=== PATIENT | male | born 1960 | race Caucasian/White ===

== ENCOUNTER → 2017-01-26 | Outpatient (CLI) | payer BC ==
--- NOTE | 2017-01-27 11:36 | PE ---
EXAMINATION TYPE: PET CT fusion skull to thigh DATE OF EXAM: 01/26/2017 COMPARISON: 09/28/2016 CT neck Prior PET/CT: None HISTORY: Oropharynx cancer TECHNIQUE: Following the intravenous administration of 14.03 mCi of F-18 FDG, whole body images are performed from the skull base to the midthigh. Images are reviewed on the computer in the coronal, a xial, and sagittal planes. Reconstructed rotating images are created on independent workstation and reviewed on the computer. A localization and attenuation correction CT is performed in conjunction with the PET scan. DLP: 253.2 mGycm SCAN: Initial Blood glucose: 83 mg/dL Average Mediastinum SUV: 2.16 Average Liver SUV: 2.53 FINDINGS: NECK: Some subtle asymmetry may be within the right tonsillar pillar with uptake measuring 2.0 cm. T his is nonspecific. There is increased uptake within the right sternocleidomastoid muscle. THORAX: No abnormal uptake ABDOMEN: No abnormal uptake PELVIS: No abnormal uptake OSSEOUS STRUCTURES: No abnormal uptake LOCALIZATION CT: The ascending thoracic aorta at the level of the main pulmonary artery is 3.1 cm. Th e main pulmonary artery the bifurcation is 2.4 cm. COMPARISON: Previous masslike area within the right neck is not identified. IMPRESSION: 1. There is uptake to the right sternocleidomastoid muscle which runs through the region of the previ ous mass on CT examination. Abnormal uptake within this region is not otherwise identified. 2. Subtle asymmetry within the right tonsillar pillar.
== END | disposition home or self-care (01) ==
LOC: RADPETMAIN 08:19
PROVIDERS: ATTEND Radiology Radiation Oncology
DX: C10.2 Malignant neoplasm of lateral wall of oropharynx (principal); R94.8 Abnormal results of function studies of other organs and systems
CPT/HCPCS: 78815; A9552

== ENCOUNTER → 2017-04-29 | Outpatient (CLI) | payer BC ==
--- NOTE | 2017-04-29 14:47 | CT ---
EXAMINATION TYPE: CT soft tissue neck w con DATE OF EXAM: 04/29/2017 HISTORY: Patient has no complaints at time of study. Follow up study for known right side oropharyng eal ca. COMPARISON: Outside CT neck July 31, 2016. PET CT January 26, 2017 CT DLP: 325.9 mGycm. Automated Exposure Control for Dose Reduction was Utilized. TECHNIQUE: CT scan of the neck is performed with IV Contrast, patient injected with 100 mL of Omnipa que 300, axial images are obtained, coronal and sagittal reformatted images are reviewed. FINDINGS: There has been interval surgery with new clips right carotid level of area of prior adenopathy. There is moderate diffuse subcutaneous edema and soft tissue swelling submandibular level, centered on the right side with some extension to the left side. No obvious recurrent mass or adenopathy at this lev el is felt present. There are scattered subcentimeter lymph nodes throughout the neck bilaterally par ticularly near inferior aspect of the bilateral parotid glands. Airway remains patent. Just below hyoid bone along right posterior lateral margin there is new nonspe cific soft tissue lobulation seen axial image 46 and coronal image 29, this is new from prior PET/CT, recurrent local neoplasm at this level cannot be excluded especially if this was site of primary kushal or. Consider direct visualization. Advanced emphysematous change visualized right upper lung with large bulla and bleb formation is rede monstrated. Moderate emphysematous change in left upper lung is redemonstrated. Cervical spine is straightened. There is moderate spurring and disc space narrowing mid to lower cerv ical levels redemonstrated. Prominent posterior spurring C5-C6 and C6-C7 level effaces anterior theca l sac similar to prior. There is partial visualization redemonstration of encephalomalacia left temporal region. IMPRESSION: Only suspicious new finding is lobulated soft tissue right posterior hypopharyngeal airwa y just below hyoid bone in which local recurrence cannot be excluded. Consider direct visualization. Posttreatment change right neck identified without recurrent mass or adenopathy at this level noted.
== END | disposition home or self-care (01) ==
LOC: RADCTMAIN 13:48
PROVIDERS: ATTEND Radiology Radiation Oncology
DX: C10.2 Malignant neoplasm of lateral wall of oropharynx (principal)
CPT/HCPCS: 70491; Q9967

== ENCOUNTER → 2017-08-17 | Outpatient (CLI) | payer OTHER ==
--- NOTE | 2017-08-17 22:12 | PE ---
EXAMINATION TYPE: PET CT fusion skull to thigh DATE OF EXAM: 08/17/2017 COMPARISON: CT neck April 29, 2017. PET CT January 26, 2017 HISTORY: Malignant neoplasm of oropharynx progress study . Completed chemotherapy November 2016. TECHNIQUE: Following the intravenous administration of 15.42 mCi of F-18 FDG, whole body images are performed from the skull base to the midthigh. Images are reviewed on the computer in the coronal, a xial, and sagittal planes. Reconstructed rotating images are created on independent workstation and reviewed on the computer. A noncontrast CT is performed in conjunction with the PET scan. Dedicated PET/CT imaging of the neck is also performed. SCAN: Subsequent Scan FINDINGS: SKULL BASE AND NECK: No suspicious hypermetabolic uptake is seen on current study . Interval resolu tion of hypermetabolic uptake right sternocleidomastoid mastoid muscle is noted. There is persistent area of nonuptake left frontal temporal region correlates with area of old infarct or encephalomalaci a. Area of lobulated tissue right posterior hypopharyngeal airway just below hyoid bone or axial imag e 37 persists but does not show suspicious hypermetabolic uptake. CHEST, MEDIASTINUM, AND HILAR REGION: No suspicious hypermetabolic uptake is seen on current study. ABDOMEN AND PELVIS: No suspicious hypermetabolic uptake is seen on current study. Normal excretion in to bladder is present. OSSEOUS STRUCTURES: No suspicious hypermetabolic uptake is seen on current study. OTHER CT: There is redemonstration of surgical changes right neck near axial image 40 with clips. There is background of advanced emphysematous change in the right upper lung redemonstrated and moder ate emphysematous change in visualized lungs in general. There is persisting cardiomegaly with coronary artery calcification which is noted marker for coronar y artery disease. There is moderate calcified plaque of aorta extending into pelvic branch vessels. There is facet arthropathy lower lumbar levels. IMPRESSION: No suspicious hypermetabolic uptake is seen to suggest neoplastic recurrence.
== END | disposition home or self-care (01) ==
LOC: RADPETMAIN 11:22
PROVIDERS: ATTEND Radiology Radiation Oncology
DX: C10.2 Malignant neoplasm of lateral wall of oropharynx (principal)
CPT/HCPCS: 78815; A9552

== ENCOUNTER → 2018-01-07 | Outpatient (CLI) | payer BC ==
--- NOTE | 2018-01-08 09:20 | CT ---
EXAMINATION TYPE: CT soft tissue neck w con DATE OF EXAM: 01/07/2018 7:30 PM COMPARISON: CT 04/29/2017, nuclear medicine PET/CT 08/17/2017 HISTORY: Follow up for oropharynx CA CT DLP: 589 mGycm Automated exposure control for dose reduction was used. CONTRAST: CT scan of the neck is performed following with IV Contrast, patient injected with 100 mL of Isovue 3 00. Axial images are obtained, coronal and sagittal reformatted images are reviewed. FINDINGS: There is a possibility of fat in the neck which may limit sensitivity. Posttreatment change s are suspected. Airway: No gross abnormality seen. Extensive emphysematous changes as present greater at the right ap ex with areas of bullous change. Parotid/submandibular glands: No gross abnormality seen. Carotid/Vascular Structures: Patent. Postop change noted to the carotid artery on the right, atheroma tous changes are present which are mild at the carotid bifurcations. Internal and external carotid ar teries show no filling defect or embolism. 3 super aortic branch vessels are present. Vertebral arter ies are codominant. Osseous Structures: There are degenerative disc changes. Multilevel spinal stenosis is present. Multi level foraminal encroachment also noted. Other: Some encephalomalacia present in the distribution of middle cerebral artery on the left. IMPRESSION: Posttreatment changes. No discrete mass evident.
== END | disposition home or self-care (01) ==
LOC: RADCTMAIN 18:49
PROVIDERS: ATTEND Radiology Radiation Oncology
DX: C10.2 Malignant neoplasm of lateral wall of oropharynx (principal); Z98.890 Other specified postprocedural states
CPT/HCPCS: 70491; Q9967

== ENCOUNTER → 2018-01-14 | Outpatient (CLI) | payer BC ==
[2018-01-14 16:16] LABS: Basophils % (A) 1 %; Eosinophils # (A) 0.1 k/uL (0-0.7); Eosinophils % (A) 2 %; HCT 46.3 % (39.0-53.0); Lymphocytes # (A) 0.5 k/uL (1.0-4.8); Lymphocytes % (A) 12 %; MCH 29.7 pg (25.0-35.0); MCHC 32.3 g/dL (31.0-37.0); Mean Platelet Volume 6.8; Monocytes # (A) 0.4 k/uL (0-1.0); Monocytes % (A) 9 %; Neutrophils # (A) 3.1 k/uL (1.3-7.7); Neutrophils % (A) 72 %; Platelet Count 143 k/uL (150-450); RBC 5.03 m/uL (4.30-5.90); RDW 13.9 % (11.5-15.5); WBC 4.3 k/uL (3.8-10.6)
[2018-01-14 16:49] LABS: Albumin 4.4 g/dL (3.5-5.0); Calcium 9.9 mg/dL (8.4-10.2); Potassium 4.1 mmol/L (3.5-5.1); Total Bilirubin 0.3 mg/dL (0.2-1.3); Total Protein 6.9 g/dL (6.3-8.2)
[2018-01-14 17:59] LABS: T4, Free (Free Thyroxine) 0.72 ng/dL (0.78-2.19)
== END | disposition home or self-care (01) ==
LOC: LABWHC1 15:46
PROVIDERS: ATTEND Radiology Radiation Oncology
DX: C77.0 Secondary and unspecified malignant neoplasm of lymph nodes of head, face and neck (principal)
CPT/HCPCS: 36415; 80053; 84439; 84443; 85025

== ENCOUNTER → 2018-04-17 | Outpatient (CLI) | payer BC ==
[2018-04-17 15:09] LABS: Basophils % (A) 1 %; Eosinophils # (A) 0.1 k/uL (0-0.7); Eosinophils % (A) 2 %; HCT 45.4 % (39.0-53.0); HGB 14.8 gm/dL (13.0-17.5); Lymphocytes # (A) 0.5 k/uL (1.0-4.8); Lymphocytes % (A) 11 %; MCH 30.8 pg (25.0-35.0); MCHC 32.5 g/dL (31.0-37.0); MCV 94.6 fL (80.0-100.0); Mean Platelet Volume 6.4; Monocytes # (A) 0.3 k/uL (0-1.0); Monocytes % (A) 7 %; Neutrophils # (A) 3.5 k/uL (1.3-7.7); Neutrophils % (A) 76 %; Platelet Count 142 k/uL (150-450); RDW 14.3 % (11.5-15.5); WBC 4.6 k/uL (3.8-10.6)
[2018-04-17 15:24] LABS: Calcium 9.5 mg/dL (8.4-10.2); Potassium 4.4 mmol/L (3.5-5.1)
[2018-04-17 15:38] LABS: T4, Free (Free Thyroxine) 0.71 ng/dL (0.78-2.19)
== END | disposition home or self-care (01) ==
LOC: LABWHC1 14:28
PROVIDERS: ATTEND Radiology Radiation Oncology
DX: C10.2 Malignant neoplasm of lateral wall of oropharynx (principal); C77.0 Secondary and unspecified malignant neoplasm of lymph nodes of head, face and neck; Z92.21 Personal history of antineoplastic chemotherapy; Z87.891 Personal history of nicotine dependence
CPT/HCPCS: 36415; 80048; 84439; 84443; 84481; 85025

== ENCOUNTER → 2018-07-28 | Outpatient (CLI) | payer BC ==
--- NOTE | 2018-07-28 22:48 | CT ---
EXAMINATION TYPE: CT neck chest without and with con DATE OF EXAM: 07/28/2018 COMPARISON: 01/07/2018 and 08/17/2017 HISTORY: 57-year-old male Malignant neoplasm lateral wall oropharynx TECHNIQUE: Contiguous axial scanning of the neck and chest performed without and with IV Contrast, pa tient injected with 100 mL of Isovue 300. Coronal/sagittal reconstructions performed. CT DLP: 1182.5 mGycm Automated exposure control for dose reduction was used. FINDINGS: Neck: Posttreatment and posterior changes redemonstrated along the right side of the neck. There is paucity of intervening fat planes limiting assessment but no definite enhancing lymphadenopathy identified. The submandibular and parotid glands appear satisfactory. Thyroid gland is somewhat atrophic. On the noncontrast series, the diffuse thickening of the aryepiglottic folds have a symmetrical appea sherrill. Asymmetry on the postcontrast series likely due to oblique imaging. No definite enhancing muco hunter space lesion is identified. Visualized intracranial structures, orbits and globes, paranasal sinuses, and mastoid air cells appea r clear. CHEST: Advanced bullous emphysema, right greater than left. Heart normal size without pericardial effusion. Mild peribursal calcifications are demonstrated. Aorta normal caliber with bovine configuration to the aortic arch. No thoracic lymphadenopathy. There is stable scarring posterior lung bases as well as chronic volume loss right middle lobe. Visualized upper abdomen shows a tiny subcentimeter hypodensity posterior right liver lobe too small for accurate CT characterization, probable cyst. Bones: Cervical spondylosis especially from C5 through C7 levels with disc osteophyte complex formation caus ing moderate to severe spinal canal stenosis with AP canal dimension of 4 mm. Multiple endplate Schmo rl's nodes mid to lower thoracic spine. IMPRESSION: 1. POSTRADIATION AND POSTSURGICAL CHANGES ALONG THE RIGHT SIDE OF THE NECK. THICKENING OF THE ARYEPIG LOTTIC FOLDS HAS A SYMMETRICAL APPEARANCE ON THE NONCONTRAST SERIES SUGGESTING POSTTREATMENT CHANGE. ALLOWING FOR THE POST TREATMENT CHANGES, NO DISCRETE ENHANCING MUCOSAL SPACE LESION OR CERVICAL LYMPH ADENOPATHY SEEN. 2. ADVANCED BULLOUS EMPHYSEMA, RIGHT GREATER THAN LEFT WITH CHRONIC SCARRING AT THE POSTERIOR LUNG BA SES AND CHRONIC VOLUME LOSS IN THE RIGHT MIDDLE LOBE. 3. CERVICAL SPONDYLOSIS FROM C5 THROUGH C7 LEVELS CAUSES MODERATE TO SEVERE SPINAL CANAL STENOSIS.
== END | disposition home or self-care (01) ==
LOC: RADCTMAIN 17:24
PROVIDERS: ATTEND Radiology Radiation Oncology
DX: C77.0 Secondary and unspecified malignant neoplasm of lymph nodes of head, face and neck (principal); C10.2 Malignant neoplasm of lateral wall of oropharynx; J43.9 Emphysema, unspecified; J98.4 Other disorders of lung; M48.02 Spinal stenosis, cervical region; M47.812 Spondylosis without myelopathy or radiculopathy, cervical region; Z92.21 Personal history of antineoplastic chemotherapy; Z87.891 Personal history of nicotine dependence; Z98.890 Other specified postprocedural states
CPT/HCPCS: 70491; 71260; Q9967

== ENCOUNTER → 2019-02-20 | Outpatient (CLI) | payer BC ==
--- NOTE | 2019-02-21 19:02 | CT ---
EXAMINATION TYPE: CT chest wo/w con DATE OF EXAM: 02/20/2019 COMPARISON: 07/28/2018 HISTORY: Malignant neoplasm of lateral wall of oropharynx. CT DLP: 818.2 mGycm, Automated exposure control for dose reduction was used. CONTRAST: Performed injected with 100ml mL of Isovue 300. TECHNIQUE: Axial images were obtained at 5 mm thick sections. Reconstructed images are reviewed on eleni computer in the coronal plane. FINDINGS: Portion of the thyroid visualized is normal. Extensive emphysematous changes are present with a very large bulla at the right apex. No enlarged mediastinal or hilar adenopathy is evident. The ascending aorta diameter at the level o f the main pulmonary artery is 2.9 cm. The main pulmonary artery diameter at the bifurcation is 2.[address] sections are obtained through the upper abdomen. Abdomen is essentially unremarkable. IMPRESSIONS: 1. Advanced emphysematous changes with very large bulla at the right apex. 2. No suspicious changes to suggest metastatic neoplasm.
--- NOTE | 2019-02-21 19:29 | CT ---
EXAMINATION TYPE: CT soft tissue neck wo/w con DATE OF EXAM: 02/20/2019 COMPARISON: 07/28/2018 HISTORY: Malignant neoplasm of lateral wall of oropharynx. CT DLP: 1182.9 mGycm CONTRAST: Patient injected with 100ml mL of Isovue 300. TECHNIQUE: Axial images at 3 mm thick sections. Reconstructed images in the coronal plane and sagitt al plane are reviewed. FINDINGS: Limited CT sections are obtained the lung apices. The lung apices appear clear. There appears to be some encephalomalacia of the anterior lateral left temporal lobe partially visual ized. CT neck: The torus tubarius and fossa of Rosenmuller are normal. Building Illuminating Engineer spaces are normal. Para nasal sinuses and mastoid air cells are clear. Parotid glands appear normal and symmetrical. Postsurgical changes are through the neck. Diffuse soft tissue remains present and stable in appearance to the anterior lateral portions of the neck. Multip le surgical clips are in the right side. The hypopharynx appears stable Vocal cord level appear symmetrical. Thyroid as visualized is normal. Osseous structures are normal. IMPRESSIONS: 1. Stable postsurgical changes through the neck. No suspicious interval mass or change is evident.
== END | disposition home or self-care (01) ==
LOC: RADCTMAIN 16:21
PROVIDERS: ATTEND Radiology Radiation Oncology
DX: J43.9 Emphysema, unspecified (principal); C77.0 Secondary and unspecified malignant neoplasm of lymph nodes of head, face and neck; Z92.3 Personal history of irradiation; Z92.21 Personal history of antineoplastic chemotherapy; Z87.891 Personal history of nicotine dependence; Z98.890 Other specified postprocedural states
CPT/HCPCS: 70492; 71270; Q9967

== ENCOUNTER → 2019-04-23 | Outpatient (CLI) | payer BC, MEDICARE ==
--- NOTE | 2019-04-23 14:26 | CT ---
EXAMINATION TYPE: CT chest w con DATE OF EXAM: 04/23/2019 COMPARISON: 02/20/2019 HISTORY: Abnormal findings of lung CT DLP: 415 mGycm Automated exposure control for dose reduction was used. CONTRAST: CT scan of the chest is performed with IV Contrast, patient injected with 100 ml mL of Isovue 300. FINDINGS: LUNGS: Severe emphysematous change of the right upper lobe with a large apical bulla noted unchanged from prior study. There is interval development of moderate to large infiltrate within the upper lobe with fluid seen within several of the bulla described are compatible with underlying pneumonia. Reti cular appearance is also noted within the right middle lobe lateral segment. Patchy density also iden tified at the right lung base which may reflect additional infiltrate and/or atelectasis. The left karen ng is clear at this time. MEDIASTINUM: There are no greater than 1 cm hilar or mediastinal lymph nodes. No pericardial effusi on is seen. Thoracic aorta is of normal caliber. The heart is not enlarged. UPPER ABDOMEN: No significant abnormality appreciated. OTHER: No additional significant abnormality is seen. IMPRESSION: 1. Multifocal pneumonia superimposed upon severe emphysematous changes of the right lung. Correlate f or aspiration.
== END | disposition home or self-care (01) ==
LOC: RADCTMAIN 13:36
PROVIDERS: ATTEND Family Medicine
DX: J43.9 Emphysema, unspecified (principal); J18.9 Pneumonia, unspecified organism
CPT/HCPCS: 71260; Q9967

== ENCOUNTER 2021-12-04 11:41 | Inpatient (IN) | payer OTHER ==
--- NOTE | 2021-12-04 14:43 | ED ---
General Adult HPI - General Chief complaint: Upper Respiratory Infection Stated complaint: Hemoptysis Time Seen by Provider: 12/04/21 14:30 Source: patient, family, RN notes reviewed Mode of arrival: ambulatory Limitations: no limitations - History of Present Illness Initial comments: Patient is a pleasant 60-year-old male presenting to the emergency Department with cough. Onset of symptoms was several days ago. Patient does have COPD and chronic cough. Patient denies dyspnea. Patient was having some phlegm, unsure what color. Patient states the last couple of days he is having some blood- tinged sputum. Patient did call the office recommended he come to the emergency department. Patient is on eliquis secondary to history of stroke. P jaymie is not on oxygen at home - Related Data Home Medications Medication Instructions Recorded Confirmed Sertraline HCl [Zoloft] 50 mg PO DAILY 02/11/16 12/04/21 Apixaban [Eliquis] 5 mg PO BID 10/15/16 12/04/21 Atorvastatin [Lipitor] 20 mg PO DAILY 10/15/16 12/04/21 Digoxin [Digitek] 125 mcg PO DAILY 12/04/21 12/04/21 Levothyroxine Sodium [Synthroid] 25 mcg PO DAILY 12/04/21 12/04/21 Metoprolol Succinate [Toprol XL] 25 mg PO DAILY 12/04/21 12/04/21 Spiriva Respimat 1.25 Mcg/Act 2 puff INHALATION RT-DAILY 12/04/21 12/04/21 levETIRAcetam [Keppra] 1,000 mg PO BID 12/04/21 12/04/21 Allergies Allergy/AdvReac Type Severity Reaction Status Date / Time No Known Allergies Allergy Verified 12/04/21 16:14 Review of Systems ROS Statement: Those systems with pertinent positive or pertinent negative responses have been documented in the HPI. ROS Other: All systems not noted in ROS Statement are negative. Constitutional: Denies: fever Eyes: Denies: eye pain ENT: Denies: ear pain Respiratory: Reports: as per HPI, cough, hemoptysis. Denies: dyspnea Cardiovascular: Denies: chest pain Gastrointestinal: Denies: abdominal pain, nausea, vomiting Genitourinary: Denies: dysuria Musculoskeletal: Denies: back pain Skin: Denies: rash Neurological: Denies: weakness Past Medical History Past Medical History: Unable to Obtain, Atrial Fibrillation, Cancer, Memory Impairment, Seizure Disorder Additional Past Medical History / Comment(s): RT TONSIL CANCER/HX "BLOOD CLOT" "ON EACH SIDE OF MY BRAIN" february 2016/STD DECREASED History of Any Multi-Drug Resistant Organisms: Unobtainable Past Surgical History: Unable to Obtain Additional Past Surgical History / Comment(s): colonoscopy/ HX "LYMPH NODES OUT" TO RIGHT NECK SEP 13 2016 Past Psychological History: No Psychological Hx Reported Smoking Status: Former smoker Past Alcohol Use History: Abuse Past Drug Use History: None Reported - Past Family History Father Family Medical History: Cancer Mother Family Medical History: AFIB Brother(s) Family Medical History: Cancer, Coronary Artery Disease (CAD) Sister(s) Family Medical History: Cancer Son(s) Family Medical History: No Reported History Daughter(s) Family Medical History: No Reported History General Exam Limitations: no limitations General appearance: alert, in no apparent distress Head exam: Present: normocephalic Eye exam: Present: normal appearance Neck exam: Present: normal inspection Respiratory exam: Present: normal lung sounds bilaterally. Absent: respiratory distress, wheezes, rales, rhonchi, stridor, chest wall tenderness, accessory muscle use, decreased breath sounds Cardiovascular Exam: Present: regular rate, normal rhythm GI/Abdominal exam: Present: soft. Absent: tenderness Extremities exam: Present: normal inspection. Absent: pedal edema, calf tenderness Neurological exam: Present: alert Psychiatric exam: Present: normal affect, normal mood Skin exam: Present: normal color Course Vital Signs 12/04/21 12:58 Temperature 98 F Pulse Rate 64 Respiratory 16 Rate Blood Pressure 146/91 O2 Sat by Pulse 90 L Oximetry Medical Decision Making - Medical Decision Making Case was discussed with Dr. Shirley, had plans of admission covering Dr. Rivera. Patient reevaluated and resting comfortably in bed. Patient is recommended admission secondary to several factors and putting previous lung history, hypoxia, multilobar pneumonia and hemoptysis. Despite this patient refuses admission. Family is present. Patient is receptive to receiving his Rocephin prior to leaving and receptive to prescription for outpatient antibiotics. Following family discussion patient is agreeable to stay. - Lab Data Result diagrams: 12/04/21 14:45 12/04/21 14:45 Lab Results 12/04/21 12/04/21 12/04/21 Range/Units 14:45 14:45 14:45 WBC 6.5 (3.8-10.6) k/uL RBC 5.46 (4.30-5.90) m/uL Hgb 17.3 (13.0-17.5) gm/dL Hct 51.8 (39.0-53.0) % MCV 94.9 (80.0-100.0) fL MCH 31.8 (25.0-35.0) pg MCHC 33.5 (31.0-37.0) g/dL RDW 14.4 (11.5-15.5) % Plt Count 121 L (150-450) k/uL MPV 7.2 Neutrophils % 80 % Lymphocytes % 10 % Monocytes % 6 % Eosinophils % 1 % Basophils % 1 % Neutrophils # 5.2 (1.3-7.7) k/uL Lymphocytes # 0.7 L (1.0-4.8) k/uL Monocytes # 0.4 (0-1.0) k/uL Eosinophils # 0.1 (0-0.7) k/uL Basophils # 0.0 (0-0.2) k/uL PT 10.8 (9.0-12.0) sec INR 1.0 (<1.2) APTT 43.7 H (22.0-30.0) sec Sodium 137 (137-145) mmol/L Potassium 3.9 (3.5-5.1) mmol/L Chloride 98 (98-107) mmol/L Carbon Dioxide 28 (22-30) mmol/L Anion Gap 11 mmol/L BUN 18 (9-20) mg/dL Creatinine 1.27 H (0.66-1.25) mg/dL Est GFR (CKD-EPI)AfAm 71 (>60 ml/min/1.73 sqM) Est GFR (CKD-EPI)NonAf 61 (>60 ml/min/1.73 sqM) Glucose 92 (74-99) mg/dL Plasma Lactic Acid Edilberto (0.7-2.0) mmol/L Calcium 9.5 (8.4-10.2) mg/dL Total Bilirubin 1.2 (0.2-1.3) mg/dL AST 33 (17-59) U/L ALT 25 (4-49) U/L Alkaline Phosphatase 124 (38-126) U/L Total Protein 8.3 H (6.3-8.2) g/dL Albumin 4.8 (3.5-5.0) g/dL Coronavirus (PCR) (Not Detectd) Influenza Type A RNA (Not Detectd) Influenza Type B (PCR) (Not Detectd) Blood Type Blood Type Recheck Bld Type Recheck Status Antibody Screen Spec Expiration Date 12/04/21 12/04/21 12/04/21 Range/Units 14:45 14:45 14:45 WBC (3.8-10.6) k/uL RBC (4.30-5.90) m/uL Hgb (13.0-17.5) gm/dL Hct (39.0-53.0) % MCV (80.0-100.0) fL MCH (25.0-35.0) pg MCHC (31.0-37.0) g/dL RDW (11.5-15.5) % Plt Count (150-450) k/uL MPV Neutrophils % % Lymphocytes % % Monocytes % % Eosinophils % % Basophils % % Neutrophils # (1.3-7.7) k/uL Lymphocytes # (1.0-4.8) k/uL Monocytes # (0-1.0) k/uL Eosinophils # (0-0.7) k/uL Basophils # (0-0.2) k/uL PT (9.0-12.0) sec INR (<1.2) APTT (22.0-30.0) sec Sodium (137-145) mmol/L Potassium (3.5-5.1) mmol/L Chloride (98-107) mmol/L Carbon Dioxide (22-30) mmol/L Anion Gap mmol/L BUN (9-20) mg/dL Creatinine (0.66-1.25) mg/dL Est GFR (CKD-EPI)AfAm (>60 ml/min/1.73 sqM) Est GFR (CKD-EPI)NonAf (>60 ml/min/1.73 sqM) Glucose (74-99) mg/dL Plasma Lactic Acid Edilberto 0.9 (0.7-2.0) mmol/L Calcium (8.4-10.2) mg/dL Total Bilirubin (0.2-1.3) mg/dL AST (17-59) U/L ALT (4-49) U/L Alkaline Phosphatase (38-126) U/L Total Protein (6.3-8.2) g/dL Albumin (3.5-5.0) g/dL Coronavirus (PCR) (Not Detectd) Influenza Type A RNA Not Detected (Not Detectd) Influenza Type B (PCR) Not Detected (Not Detectd) Blood Type O Positive Blood Type Recheck No Previous Record Bld Type Recheck Status CABO Indicated Antibody Screen NEGATIVE Spec Expiration Date 12/07/2021 - 234412/04/21 Range/Units 14:45 WBC (3.8-10.6) k/uL RBC (4.30-5.90) m/uL Hgb (13.0-17.5) gm/dL Hct (39.0-53.0) % MCV (80.0-100.0) fL MCH (25.0-35.0) pg MCHC (31.0-37.0) g/dL RDW (11.5-15.5) % Plt Count (150-450) k/uL MPV Neutrophils % % Lymphocytes % % Monocytes % % Eosinophils % % Basophils % % Neutrophils # (1.3-7.7) k/uL Lymphocytes # (1.0-4.8) k/uL Monocytes # (0-1.0) k/uL Eosinophils # (0-0.7) k/uL Basophils # (0-0.2) k/uL PT (9.0-12.0) sec INR (<1.2) APTT (22.0-30.0) sec Sodium (137-145) mmol/L Potassium (3.5-5.1) mmol/L Chloride (98-107) mmol/L Carbon Dioxide (22-30) mmol/L Anion Gap mmol/L BUN (9-20) mg/dL Creatinine (0.66-1.25) mg/dL Est GFR (CKD-EPI)AfAm (>60 ml/min/1.73 sqM) Est GFR (CKD-EPI)NonAf (>60 ml/min/1.73 sqM) Glucose (74-99) mg/dL Plasma Lactic Acid Edilberto (0.7-2.0) mmol/L Calcium (8.4-10.2) mg/dL Total Bilirubin (0.2-1.3) mg/dL AST (17-59) U/L ALT (4-49) U/L Alkaline Phosphatase (38-126) U/L Total Protein (6.3-8.2) g/dL Albumin (3.5-5.0) g/dL Coronavirus (PCR) Not Detected (Not Detectd) Influenza Type A RNA (Not Detectd) Influenza Type B (PCR) (Not Detectd) Blood Type Blood Type Recheck Bld Type Recheck Status Antibody Screen Spec Expiration Date - Radiology Data Radiology results: report reviewed (Computed tomography scan chest shows right upper lobe pneumonia. Left lower lobe mild pneumonia.) Disposition Clinical Impression: Pneumonia, Hypoxia, Hemoptysis Disposition: ADMITTED IP TO THIS [facility] Instructions (If sedation given, give patient instructions): Bacterial Pneumonia (ED) Is patient prescribed a controlled substance at d/c from ED?: No Referrals: Eugenia Taveras MD [Primary Care Provider] - 1-2 days Time of Disposition: 17:13
[2021-12-04 15:14] LABS: Basophils % (A) 1 %; Eosinophils # (A) 0.1 k/uL (0-0.7); Eosinophils % (A) 1 %; HCT 51.8 % (39.0-53.0); HGB 17.3 gm/dL (13.0-17.5); Lymphocytes # (A) 0.7 k/uL (1.0-4.8); Lymphocytes % (A) 10 %; MCH 31.8 pg (25.0-35.0); MCHC 33.5 g/dL (31.0-37.0); MCV 94.9 fL (80.0-100.0); Mean Platelet Volume 7.2; Monocytes # (A) 0.4 k/uL (0-1.0); Monocytes % (A) 6 %; Neutrophils # (A) 5.2 k/uL (1.3-7.7); Neutrophils % (A) 80 %; Platelet Count 121 k/uL (150-450); RBC 5.46 m/uL (4.30-5.90); RDW 14.4 % (11.5-15.5); WBC 6.5 k/uL (3.8-10.6)
[2021-12-04 15:23] LABS: Albumin 4.8 g/dL (3.5-5.0); Calcium 9.5 mg/dL (8.4-10.2); Partial Thromboplastin Time 43.7 sec (22.0-30.0); Potassium 3.9 mmol/L (3.5-5.1); Prothrombin Time 10.8 sec (9.0-12.0); Total Bilirubin 1.2 mg/dL (0.2-1.3); Total Protein 8.3 g/dL (6.3-8.2)
--- NOTE | 2021-12-04 16:52 | CT ---
EXAMINATION TYPE: CT angio chest DATE OF EXAM: 12/04/2021 COMPARISON: None HISTORY: Hemoptysis. CT DLP: 283.4 mGycm Automated exposure control for dose reduction was used. CONTRAST: Performed with IV Contrast, patient injected with 80 mL of Isovue 370. Images obtained from the thoracic inlet through the diaphragm with IV contrast. There are Three-D pos tprocessed images. There is coarse reticular nodular infiltrate in the right lung. This is predominan tly in the lateral aspect of the right upper lobe. There are some enlarged right bronchial lymph node s up to 1.5 cm. No paratracheal adenopathy. No evidence of filling defect in the pulmonary arteries. There is some mild atelectasis left lower lo be. No pleural effusion. No pneumothorax. No pericardial effusion. Thoracic spine is intact. Sternum is intact. IMPRESSION: Right upper lobe pneumonia. Left lower lobe mild pneumonia and atelectasis. No evidence of pulmonary embolism..
[2021-12-04] MEDS ORDERED: AZITHROMYCIN 500 MG in SODIUM CHLORIDE 0.9% 250 ML IVPB STA (17:13)
[2021-12-04] MEDS ORDERED: IPRATROPIUM-ALBUTEROL 3 ML NEB INHALATION PRN (17:13)
[2021-12-04] MEDS ORDERED: PNEUMONIA PROTOCOL UTILIZED 1 EACH MISC PO PRN (17:13)
[2021-12-04] MEDS: SODIUM CHLORIDE 0.9% 1,000 ML IV SCH ×2 (18:06→18:10)
[2021-12-04] MEDS: IPRATROPIUM-ALBUTEROL 3 ML NEB INHALATION SCH (19:24)
--- NOTE | 2021-12-05 07:00 | XR ---
EXAMINATION TYPE: XR chest 2V DATE OF EXAM: 12/05/2021 COMPARISON: CTA chest from yesterday HISTORY: Hemoptysis. TECHNIQUE: Frontal and lateral views of the chest are obtained. FINDINGS: Background Moderate to advanced underlying emphysematous change with patchy right upper to midlung opacities remain present. Left lung remains clear. The cardiac silhouette size is stable an d within normal limits. A single lead pacemaker/defibrillator is redemonstrated The osseous structur es are intact. Surgical clips right neck region are partially imaged. IMPRESSION: Moderate to advanced underlying emphysematous change with persistent patchy predominantl y peripheral right upper to midlung acute infiltrates. No significant change from one day earlier.
[2021-12-05 07:08] VITALS: BP 111/77; PULSE 88; RESP 16; TEMP 97.7
[2021-12-05] MEDS: IPRATROPIUM-ALBUTEROL 3 ML NEB INHALATION SCH ×2 (08:24→11:48)
[2021-12-05 09:14] LABS: Basophils # (A) 0.01 X 10*3/uL (0.00-0.10); Basophils % (A) 0.2 %; Eosinophils # (A) 0.11 X 10*3/uL (0.04-0.35); Eosinophils % (A) 2.2 %; HCT 45.1 % (39.6-50.0); HGB 14.8 g/dL (13.0-17.0); Immature Grans, Automated 0.2 %; Lymphocytes # (A) 0.67 X 10*3/uL (0.90-5.00); Lymphocytes % (A) 13.7 %; MCH 30.6 pg (27.0-32.0); MCHC 32.8 g/dL (32.0-37.0); MCV 93.4 fL (80.0-97.0); Mean Platelet Volume 10.1 fL (9.5-12.2); Monocytes # (A) 0.62 X 10*3/uL (0.20-1.00); Monocytes % (A) 12.7 %; NRBC Per 100 WBC 0 /100 WBCS (0.0-0.0); Neutrophils # (A) 3.48 X 10*3/uL (1.80-7.70); Platelet Count 113 X 10*3/uL (140-440); RBC 4.83 X 10*6/uL (4.40-5.60); RDW 13.8 % (11.5-14.5)
[2021-12-05 09:28] LABS: African American GFR (CKD) 95.1 (60.0-200.0); Anion Gap 9.6 mmol/L (10.00-18.00); BUN/Creat Ratio 12.2 Ratio (12.00-20.00); Blood Urea Nitrogen 12.2 mg/dL (9.0-27.0); Calcium 8.5 mg/dL (8.7-10.3); Carbon Dioxide 25.4 mmol/L (20.0-27.5); Magnesium 1.9 mg/dL (1.5-2.4); Potassium 3.9 mmol/L (3.5-5.5)
[2021-12-05] MEDS ORDERED: APIXABAN 5 MG TAB PO SCH (09:45)
[2021-12-05] MEDS ORDERED: ATORVASTATIN 20 MG TAB PO SCH (09:45)
[2021-12-05] MEDS ORDERED: METOPROLOL SUCCINATE (ER) 25 MG TAB.ER.24H PO SCH (09:45)
[2021-12-05] MEDS ORDERED: levETIRAcetam 500 MG TAB PO SCH (09:45)
[2021-12-05] MEDS ORDERED: LEVOTHYROXINE 25 MCG TAB PO SCH (09:45)
[2021-12-05] MEDS ORDERED: SERTRALINE 50 MG TAB PO SCH (09:45)
[2021-12-05] MEDS ORDERED: DIGOXIN 125 MCG TAB PO SCH (10:30)
--- NOTE | 2021-12-05 11:09 | P.HPIM ---
History of Present Illness H&P Date: 12/05/21 This is a pleasant 60-year-old male presents to the hospital with complaints of cough which began several days ago. He is also reporting some hemoptysis which began a couple days ago. Denying sputum production currently. Patient was advised to come to the emergency room by his physician. Patient has a history of COPD with chronic cough, history of stroke in 2016, atrial fibrillation, permanent pacemaker inserted Mar of last year, follows at [facility], tonsil cancer with lymph node removal in 2017, on eliquis. Patient is a former smoker quit in 2015, and history of chronic alcohol use state he hasn't drank in 25 years. Patient does state he has history of aspiration pneumonia secondary to s car tissue from lymph node removal. Denies chest pain, denies fever or chills. No recent illness. Does not wear home oxygen, he is anxious to go home today. Labs on admission showing platelet count of 121, creatinine 1.27, Covid, influenza A/B are not detected. Chest CT had admission shows right upper lobe pneumonia with lower lobe pneumonia and atelectasis. Patient to the hospital consults placed to pulmonary services patient did receive IV azithromycin and IV ceftriaxone in the ER. He is continued on oral azithromycin and IV Rocephin. Currently requiring 2L of oxygen. REVIEW OF SYSTEMS: CONSTITUTIONAL: No fever, no malaise, no fatigue. HEENT: No recent visual problems or hearing problems. Denied any sore throat. CARDIOVASCULAR: No chest pain, orthopnea, PND, no palpitations, no syncope. PULMONARY: Denies shortness of breath, reports cough, reports hempotysis GASTROINTESTINAL: No diarrhea, no nausea, no vomiting, no abdominal pain. NEUROLOGICAL: No headaches, no weakness, no numbness. HEMATOLOGICAL: Denies any bleeding or petechiae. GENITOURINARY: Denies any burning micturition, frequency, or urgency. MUSCULOSKELETAL/RHEUMATOLOGICAL: Denies any joint pain, swelling, or any muscle pain. ENDOCRINE: Denies any polyuria or polydipsia. The rest of the 14-point review of systems is negative. PHYSICAL EXAMINATION: GENERAL: The patient is alert and oriented x3, not in any acute distress. Well developed, well nourished. HEENT: Pupils are round and equally reacting to light. EOMI. No scleral icterus. No conjunctival pallor. Normocephalic, atraumatic. No pharyngeal erythema. No thyromegaly. CARDIOVASCULAR: S1 and S2 present. No murmurs, rubs, or gallops. PULMONARY: Chest is clear to auscultation, no wheezing or crackles. ABDOMEN: Soft, nontender, nondistended, normoactive bowel sounds. No palpable organomegaly. MUSCULOSKELETAL: No joint swelling or deformity. EXTREMITIES: No cyanosis, clubbing, or pedal edema. NEUROLOGICAL: Gross neurological examination did not reveal any focal deficits. SKIN: No rashes. Assessment and Plan Assessment Right upper lobe pneumonia, without sepsis, present on admission, currently with no fever or white count, procalcitonin level 0.21. Acute kidney injury mostly prerenal, resolved with hydration History atrial fibrillation, paroxysmal statues post permanent pacemaker History of tonsil cancer with lymph node resection and chemoradiation in 2016 History of stroke in 2015 with no residuals per patient History of aspiration pneumonia Former smoker Remote history of alcohol use GI prophylaxis DVT prophylaxis on eliquis Plan Continue antibiotics Wean oxygen Pulmonary consultation Home oxygen test Incentive spirometry Possible discharge today The impression and plan of care has been dictated by Stella English, Nurse Practitioner as directed. Dr. Serena MD I have performed a history and physical examination and medical decision making of this patient, discussed the same with the dictator, and agree with the dictators assessment and plan as written, documented as a scribe. Based on total visit time, I have performed more than 50% of this visit. Past Medical History Past Medical History: Unable to Obtain, Atrial Fibrillation, Cancer, Memory Impairment, Seizure Disorder Additional Past Medical History / Comment(s): RT TONSIL CANCER/HX "BLOOD CLOT" "ON EACH SIDE OF MY BRAIN" february 2016/STD DECREASED History of Any Multi-Drug Resistant Organisms: Unobtainable Past Surgical History: Unable to Obtain Additional Past Surgical History / Comment(s): colonoscopy/ HX "LYMPH NODES O UT" TO RIGHT NECK SEP 13 2016 Past Anesthesia/Blood Transfusion Reactions: No Reported Reaction Past Psychological History: No Psychological Hx Reported Smoking Status: Former smoker Past Alcohol Use History: Abuse Past Drug Use History: None Reported - Past Family History Father Family Medical History: Cancer Mother Family Medical History: AFIB Brother(s) Family Medical History: Cancer, Coronary Artery Disease (CAD) Sister(s) Family Medical History: Cancer Son(s) Family Medical History: No Reported History Daughter(s) Family Medical History: No Reported History Medications and Allergies Home Medications Medication Instructions Recorded Confirmed Type Sertraline HCl [Zoloft] 50 mg PO DAILY 02/11/16 12/04/21 History Apixaban [Eliquis] 5 mg PO BID 10/15/16 12/04/21 History Atorvastatin [Lipitor] 20 mg PO DAILY 10/15/16 12/04/21 History Digoxin [Digitek] 125 mcg PO DAILY 12/04/21 12/04/21 History Levothyroxine Sodium [Synthroid] 25 mcg PO DAILY 12/04/21 12/04/21 History Metoprolol Succinate [Toprol XL] 25 mg PO DAILY 12/04/21 12/04/21 History Spiriva Respimat 1.25 Mcg/Act 2 puff INHALATION RT-DAILY 12/04/21 12/04/21 History levETIRAcetam [Keppra] 1,000 mg PO BID 12/04/21 12/04/21 History Allergies Allergy/AdvReac Type Severity Reaction Status Date / Time No Known Allergies Allergy Verified 12/04/21 16:14 Physical Exam Vitals: Vital Signs Temp Pulse Pulse Resp BP BP Pulse Ox 12/05/21 09:18 88 12/05/21 08:33 88 12/05/21 08:24 88 12/05/21 07:06 97.7 F 88 16 111/77 92 L 12/05/21 01:07 98.0 F 59 L 17 153/76 94 L 12/05/21 00:00 99.1 F 60 18 104/87 91 L 12/04/21 23:09 63 18 93 L 12/04/21 22:29 69 14 92/75 91 L 12/04/21 19:36 69 12/04/21 19:25 70 12/04/21 17:40 64 14 140/91 92 L 12/04/21 12:58 98 F 64 16 146/91 90 L Intake and Output 12/04/21 12/05/21 12/05/21 22:59 06:59 14:59 Intake Total 300 Balance 300 Intake: Oral 300 Other: Voiding Method Toilet # Voids 2 Weight 65.771 kg Results CBC & Chem 7: 12/05/21 06:32 12/05/21 06:32 Labs: Abnormal Lab Results - Last 24 Hours (Table) 12/04/21 12/04/21 12/04/21 Range/Units 14:45 14:45 14:45 Plt Count 121 L (150-450) k/uL Lymphocytes # 0.7 L (1.0-4.8) k/uL APTT 43.7 H (22.0-30.0) sec Creatinine 1.27 H (0.66-1.25) mg/dL Total Protein 8.3 H (6.3-8.2) g/dL 12/05/21 Range/Units 06:32 Plt Count 113 L (150-450) k/uL Lymphocytes # 0.67 L (1.0-4.8) k/uL APTT (22.0-30.0) sec Creatinine (0.66-1.25) mg/dL Total Protein (6.3-8.2) g/dL Thrombosis Risk Factor Assmnt - Choose All That Apply Each Factor Represents 1 point: Abnormal pulmonary function (COPD), Age 41-60 years, Serious lung disease incl. pneumonia (< 1month) Thrombosis Risk Factor Assessment Total Risk Factor Score: 3 Thrombosis Risk Factor Assessment Level: Moderate Risk Assessment and Plan Time with Patient: Greater than 30
--- NOTE | 2021-12-05 15:41 | P.DS ---
Providers Date of admission: 12/04/21 17:37 Attending physician: Dorothy Shirley Consults: 12/04/21 17:37 Consult Physician Routine Consulting Provider: Maegan Lopez Consult Reason/Comments: Pneumonia, hypoxia, hemoptysis Do you want consulting provider notified?: Yes Primary care physician: Eugenia Taveras Hospital Course: Final Diagnosis Radiation pneumonitis currently with no fever or white count, procalcitonin level 0.21, suspicion for right upper lobe pneumonia low after review of imaging. Acute hypoxic respiratory failure secondary to COPD exacerbation COPD/Emphysema Acute kidney injury mostly prerenal, resolved with hydration History atrial fibrillation, paroxysmal statues post permanent pacemaker History of tonsil cancer with lymph node resection and chemoradiation in 2017 History of stroke in 2016 with no residuals per patient History of aspiration pneumonia Former smoker Remote history of alcohol use Discharge Disposition Patient stable for discharge home. Oxygen saturation 86% on room air, patient refusing home oxygen, states once he finishes antibiotic therapy his oxygen will increase. He is given incentive spirometry and educated on use. He will also follow up in the office with pulmonary after discharge. Hospital Course This is a pleasant 60 year male presented to the hospital with complaints of cough 1 week in addition to hemoptysis which began 2 days ago. Although on assessment patient denies cough which was reported in the medical chart. Patient has a remote history of smoking states he quit in 2016 after diagnosis of tonsil cancer with subsequent lymph node removal on right neck with chemoradiation. He also has history of atrial fibrillation status post permanent pacemaker in Mar of last year. Patient is maintained on eliquis for anticoagulation. Patient does not report history of COPD, there are finding suggestive on imaging with chest x-ray showing moderate to advanced underlying emphysematous change with persistent patchy predominantly perihilar right upper to middle of acute infiltrates. Patient currently denies any further episodes of hemoptysis. No fever or chills. No chest pain or palpitations. Denies nausea vomiting diarrhea. There has been no elevation in white count, creatinine slightly elevated on admission 1.27, currently 1.0. Pro-calcitonin level 0.21 which is suggestive of bacterial infection. Covid, influenza A and B are negative. Patient has remained afebrile. He will be discharged on 5 days of oral levofloxacin, as well as Symbicort inhaler. Please see history and physical for additional information. 12/05/2021 Patient evaluated today and is requesting discharge. No acute events overnight. He denies shortness of breath, chest pain, palpitations. Upon assessment his lungs are clear, s1 and s2 are auscultated. He refused home oxygen. Will be discharged on 5 days of oral antibiotics in addition to symbicort, albuterol inhaler. He is alert and oriented, focal neurological exam is negative. Labs as described above. Follow up with primary care, pulmonary services on discharge. Please see medication reconciliation for list of current medication. Thank you for allowing us to participate in the care of this patient. The impression and plan of care has been dictated by Stella English Nurse Practitioner as directed. Dr. Serena MD I have performed a history and physical examination and medical decision making of this patient, discussed the same with the dictator, and agree with the dictators assessment and plan as written, documented as a scribe. Based on total visit time, I have performed more than 50% of this visit. Patient Condition at Discharge: Fair Plan - Discharge Summary Discharge Rx Participant: No New Discharge Prescriptions: New Levofloxacin [Levaquin] 750 mg PO DAILY 5 Days #5 tab Continue Sertraline HCl [Zoloft] 50 mg PO DAILY Apixaban [Eliquis] 5 mg PO BID Atorvastatin [Lipitor] 20 mg PO DAILY Spiriva Respimat 1.25 Mcg/Act 2 puff INHALATION RT-DAILY Metoprolol Succinate [Toprol XL] 25 mg PO DAILY Levothyroxine Sodium [Synthroid] 25 mcg PO DAILY levETIRAcetam [Keppra] 1,000 mg PO BID Digoxin [Digitek] 125 mcg PO DAILY Discharge Medication List Sertraline HCl [Zoloft] 50 mg PO DAILY 02/11/16 [History] Apixaban [Eliquis] 5 mg PO BID 10/15/16 [History] Atorvastatin [Lipitor] 20 mg PO DAILY 10/15/16 [History] Digoxin [Digitek] 125 mcg PO DAILY 12/04/21 [History] Levothyroxine Sodium [Synthroid] 25 mcg PO DAILY 12/04/21 [History] Metoprolol Succinate [Toprol XL] 25 mg PO DAILY 12/04/21 [History] Spiriva Respimat 1.25 Mcg/Act 2 puff INHALATION RT-DAILY 12/04/21 [History] levETIRAcetam [Keppra] 1,000 mg PO BID 12/04/21 [History] Levofloxacin [Levaquin] 750 mg PO DAILY 5 Days #5 tab 12/05/21 [Rx] Follow up Appointment(s)/Referral(s): Eugenia Taveras MD [Primary Care Provider] - 1-2 days Sury Horn NPC [Nurse Practitioner] - 1 Week Ambulatory/Diagnostic Orders: Complete Blood Count w/diff [LAB.AMB] Time Frame: 2 Days, Location: None Selected Patient Instructions/Handouts: Bacterial Pneumonia (ED) Activity/Diet/Wound Care/Special Instructions: activity as tolerated heart healthy diet Discharge Disposition: HOME SELF-CARE
[2021-12-05] MEDS ORDERED: AZITHROMYCIN 500 MG TAB PO SCH (18:00)
[2021-12-06] MEDS ORDERED: TIOTROPIUM INHALATION SCH (08:00)
== END 2021-12-05 12:32 | disposition home or self-care (01) | DRG 205 ==
LOC: EC 11:41 → 5NMEDONC 17:37 → 6NMEDSUR 23:54
PROVIDERS: ADMIT Hospitalist; ATTEND Hospitalist
DX: J70.0 Acute pulmonary manifestations due to radiation (principal); J96.01 Acute respiratory failure with hypoxia; I48.21 Permanent atrial fibrillation; J98.11 Atelectasis; N17.9 Acute kidney failure, unspecified; J43.9 Emphysema, unspecified; I48.0 Paroxysmal atrial fibrillation; Z20.822 Contact with and (suspected) exposure to COVID-19; G40.909 Epilepsy, unspecified, not intractable, without status epilepticus; Y84.2 Radiological procedure and radiotherapy as the cause of abnormal reaction of the patient, or of later complication, without mention of misadventure at the time of the procedure; Z79.01 Long term (current) use of anticoagulants; Z79.890 Hormone replacement therapy; Z79.899 Other long term (current) drug therapy; Z82.49 Family history of ischemic heart disease and other diseases of the circulatory system; Z85.818 Personal history of malignant neoplasm of other sites of lip, oral cavity, and pharynx; Z86.73 Personal history of transient ischemic attack (TIA), and cerebral infarction without residual deficits; Z87.01 Personal history of pneumonia (recurrent); Z87.891 Personal history of nicotine dependence; Z92.21 Personal history of antineoplastic chemotherapy; Z92.3 Personal history of irradiation; Z95.0 Presence of cardiac pacemaker
CPT/HCPCS: 36415; 71046; 71275; 80048; 80053; 83605; 83735; 84145; 85025; 85610; 85730; 86850; 86900; 86901; 87040; 87502; 87635; 94640; 96365; 96368; 99285

== ENCOUNTER 2022-12-17 11:42 | Emergency (ER) | payer MEDICARE, OTHER ==
--- NOTE | 2022-12-17 12:56 | XR ---
EXAMINATION TYPE: XR chest 2V DATE OF EXAM: 12/17/2022 COMPARISON: 12/05/2021 HISTORY: 61-year-old male hemoptysis TECHNIQUE: PA and lateral views FINDINGS: Left anterior chest wall AICD generator with right ventricular lead. Heart normal size. Hyperinflatio n. Mild interstitial prominence. There is focal opacity at the periphery of the right upper and midlu ng. No pleural effusion. IMPRESSION: COPD. Opacity along the periphery of the right upper and midlung could reflect a recurrent infiltrate /pneumonia.
--- NOTE | 2022-12-17 13:19 | ED ---
General Adult HPI - General Chief complaint: Recheck/Abnormal Lab/Rx Stated complaint: Spitting up Blood Time Seen by Provider: 12/17/22 12:19 Source: patient, RN notes reviewed, old records reviewed Mode of arrival: ambulatory Limitations: no limitations - History of Present Illness Initial comments: 61-year-old male presents for evaluation of cough and blood-tinged sputum. Patient states that he does have history of COPD, emphysema and recurrent pneumonia He denies chest pain. Denies fever. He states he's had multiple episodes of cough with this blood-tinged sputum. He states he does follow with pulmonology. He states at the time my initial encounter that he does not want to stay in the hospital and does not want significant testing. - Related Data Home Medications Medication Instructions Recorded Confirmed Sertraline HCl [Zoloft] 50 mg PO DAILY 02/11/16 12/04/21 Apixaban [Eliquis] 5 mg PO BID 10/15/16 12/04/21 Atorvastatin [Lipitor] 20 mg PO DAILY 10/15/16 12/04/21 Digoxin [Digitek] 125 mcg PO DAILY 12/04/21 12/04/21 Levothyroxine Sodium [Synthroid] 25 mcg PO DAILY 12/04/21 12/04/21 Metoprolol Succinate [Toprol XL] 25 mg PO DAILY 12/04/21 12/04/21 Spiriva Respimat 1.25 Mcg/Act 2 puff INHALATION RT-DAILY 12/04/21 12/04/21 levETIRAcetam [Keppra] 1,000 mg PO BID 12/04/21 12/04/21 Previous Rx's Medication Instructions Recorded Budesonide/Formoterol Fumarate 1 puff INHALATION BID #10.2 gm 12/05/21 [Symbicort 80-4.5 Mcg Inhaler] levoFLOXacin [Levaquin] 750 mg PO DAILY 5 Days #5 tab 12/05/21 Levofloxacin [Levaquin] 500 mg PO DAILY 5 Days #5 tab 12/17/22 predniSONE 50 mg PO DAILY #5 tab 12/17/22 Allergies Allergy/AdvReac Type Severity Reaction Status Date / Time No Known Allergies Allergy Verified 12/17/22 12:15 Review of Systems ROS Statement: Those systems with pertinent positive or pertinent negative responses have been documented in the HPI. ROS Other: All systems not noted in ROS Statement are negative. Past Medical History Past Medical History: Unable to Obtain, Atrial Fibrillation, Cancer, Memory Impairment, Seizure Disorder Additional Past Medical History / Comment(s): RT TONSIL CANCER/HX "BLOOD CLOT" "ON EACH SIDE OF MY BRAIN" february 2016/STD DECREASED History of Any Multi-Drug Resistant Organisms: Unobtainable Past Surgical History: Unable to Obtain Additional Past Surgical History / Comment(s): colonoscopy/ HX "LYMPH NODES OUT" TO RIGHT NECK SEP 13 2016 Past Anesthesia/Blood Transfusion Reactions: No Reported Reaction Past Psychological History: No Psychological Hx Reported Smoking Status: Former smoker Past Alcohol Use History: Abuse Past Drug Use History: None Reported - Past Family History Father Family Medical History: Cancer Mother Family Medical History: AFIB Brother(s) Family Medical History: Cancer, Coronary Artery Disease (CAD) Sister(s) Family Medical History: Cancer Son(s) Family Medical History: No Reported History Daughter(s) Family Medical History: No Reported History General Exam Limitations: no limitations General appearance: alert, in no apparent distress Head exam: Present: atraumatic, normocephalic Eye exam: Present: normal appearance, PERRL ENT exam: Present: normal exam Neck exam: Present: normal inspection. Absent: tenderness, meningismus Respiratory exam: Absent: respiratory distress, wheezes, rhonchi Cardiovascular Exam: Present: regular rate, normal rhythm GI/Abdominal exam: Present: soft. Absent: distended, tenderness Extremities exam: Present: normal capillary refill. Absent: pedal edema, calf tenderness Neurological exam: Present: alert, oriented X3, CN II-XII intact. Absent: motor sensory deficit Psychiatric exam: Present: normal affect, normal mood Skin exam: Present: warm, dry, intact. Absent: cyanosis, diaphoretic Course Vital Signs 12/17/22 12:12 Temperature 97.7 F Pulse Rate 60 Respiratory 22 Rate Blood Pressure 130/83 O2 Sat by Pulse 99 Oximetry Medical Decision Making - Medical Decision Making Was pt. sent in by a medical professional or institution (, PA, CHIEF EMBALMER, urgent care, hospital, or usp...) When possible be specific @ -No Did you speak to anyone other than the patient for history (EMS, parent, family, police, friend...)? What history was obtained from this source @ -No Did you review nursing and triage notes (agree or disagree)? Why? @ -I reviewed and agree with nursing and triage notes Were old charts reviewed (outside hosp., previous admission, EMS record, old EKG, old radiological studies, urgent care reports/EKG's, usp records)? Report findings @Previous imaging including CT of the chest Differential Diagnosis (chest pain, altered mental status, abdominal pain women, abdominal pain men, vaginal bleeding, weakness, fever, dyspnea, syncope, headache, dizziness, GI bleed, back pain, seizure, CVA, palpatations, mental health, musculoskeletal)? @ -Differential Dyspnea: Coronary syndrome, arrhythmia, tamponade, asthma, COPD, pulmonary embolism, pneumonia, pneumothorax, pulmonary effusion, anaphylaxis, diabetic ketoacidosis, flailed chest, pulmonary contusion, diaphragmatic rupture, anemia, neuromuscular, this is not meant to be an all-inclusive list. EKG interpreted by me (3pts min.). @ -As above X-rays interpreted by me (1pt min.). @ -Chest x-ray reviewed by myself, does show a subtle opacity in the right midlung field no pneumothorax. CT interpreted by me (1pt min.). @ -None done U/S interpreted by me (1pt. min.). @ -None done What testing was considered but not performed or refused? (CT, X-rays, U/S, labs)? Why? @Considered for workup including labs, EKG, IV. Patient declined What meds were considered but not given or refused? Why? @ -None Did you discuss the management of the patient with other professionals (professionals i.e. , PA, CHIEF EMBALMER, lab, RT, psych nurse, social and human services assistant, lawyer criminal, teacher, animal control officer, shelter case manager)? Give summary @ -No Was smoking cessation discussed for >3mins.? @ -No Was critical care preformed (if so, how long)? @ -No Were there social determinants of health that impacted care today? How? (Homelessness, low income, unemployed, alcoholism, drug addiction, transportation, low edu. Level, literacy, decrease access to med. care, group home, rehab)? @ -No Was there de-escalation of care discussed even if they declined (Discuss DNR or withdrawal of care, Hospice)? DNR status @ -No What co-morbidities impacted this encounter? (DM, HTN, Smoking, COPD, CAD, Cance r, CVA, ARF, Chemo, Hep., AIDS, mental health diagnosis, sleep apnea, morbid obesity)? @COPD Was patient admitted / discharged? Hospital course, mention meds given and route, prescriptions, significant lab abnormalities, going to OR and other pertinent info. @61-year-old male presenting for evaluation of productive cough and hemoptysis. Patient well-appearing with stable vitals. X-ray does show pneumonia. I did offer further testing for this patient but he declines he states he wants oral antibiotics and states he will follow with his cleat maker. Undiagnosed new problem with uncertain prognosis? @ -No Drug Therapy requiring intensive monitoring for toxicity (Heparin, Nitro, Insulin, Cardizem)? @ -No Were any procedures done? @ -No Diagnosis/symptom? @Pneumonia, hemoptysis Acute, or Chronic, or Acute on Chronic? @Acute Uncomplicated (without systemic symptoms) or Complicated (systemic symptoms)? @Complicated Side effects of treatment? @ -No Exacerbation, Progression, or Severe Exacerbation? @ -No Poses a threat to life or bodily function? How? (Chest pain, [place], [place], pneumonia, PE, COPD, DKA, ARF, appy, cholecystitis, CVA, Diverticulitis, Homicidal, Suicidal, threat to staff... and all critical care pts) @Yes, pneumonia, sepsis, hemoptysis Disposition Clinical Impression: Hemoptysis, Pneumonia Disposition: HOME SELF-CARE Condition: Fair Prescriptions: Levofloxacin [Levaquin] 500 mg PO DAILY 5 Days #5 tab predniSONE 50 mg PO DAILY #5 tab Is patient prescribed a controlled substance at d/c from ED?: No Referrals: Eugenia Taveras MD [Primary Care Provider] - 1-2 days Zehra Ibanez MD [STAFF PHYSICIAN] - 1-2 days Time of Disposition: 13:18
[2022-12-17 14:01] VITALS: BP 120/83; PULSE 57; RESP 18; TEMP 98.1
== END 2022-12-17 14:03 | disposition home or self-care (01) ==
LOC: EC 11:42
DX: R04.2 Hemoptysis (principal); J18.9 Pneumonia, unspecified organism; I48.91 Unspecified atrial fibrillation; Z87.891 Personal history of nicotine dependence; Z79.01 Long term (current) use of anticoagulants
CPT/HCPCS: 71046; 99283

== ENCOUNTER 2023-04-04 12:48 | Emergency (ER) | payer MEDICARE, OTHER ==
[~2023-04-04 12:48] MED LIST: HUMAN PROTHROMBIN COMPLX 500 UNIT/16 ML VIAL IV ONE
[2023-04-04 13:00] VITALS: TEMP 97.9
[2023-04-04] MEDS ORDERED: GELATIN SPONGE,ABSORB (SMALL) 1 EACH SPONGE TOPICAL STA ×2 (13:16→16:13)
--- NOTE | 2023-04-04 13:20 | ED ---
ENT HPI - General Chief complaint: Dental/Oral Stated complaint: Dental issues Time Seen by Provider: 04/04/23 13:05 Source: patient Mode of arrival: ambulatory Limitations: no limitations - History of Present Illness Initial comments: 62-year-old male with past medical history significant for CVA on Eliquis presents to ED with a chief complaint of dental problem. Patient states had lower teeth Christine on 03/14/23. Since then he reports some minimal bleeding continuously however last night bleeding increased in severity to present to the ED for further evaluation. Denies lightheadedness or dizziness. Denies chest pain shortness of breath. No other complaints. - Related Data Home Medications Medication Instructions Recorded Confirmed Sertraline HCl [Zoloft] 50 mg PO DAILY 02/11/16 12/04/21 Apixaban [Eliquis] 5 mg PO BID 10/15/16 12/04/21 Atorvastatin [Lipitor] 20 mg PO DAILY 10/15/16 12/04/21 Digoxin [Digitek] 125 mcg PO DAILY 12/04/21 12/04/21 Levothyroxine Sodium [Synthroid] 25 mcg PO DAILY 12/04/21 12/04/21 Metoprolol Succinate [Toprol XL] 25 mg PO DAILY 12/04/21 12/04/21 Spiriva Respimat 1.25 Mcg/Act 2 puff INHALATION RT-DAILY 12/04/21 12/04/21 levETIRAcetam [Keppra] 1,000 mg PO BID 12/04/21 12/04/21 Previous Rx's Medication Instructions Recorded Budesonide/Formoterol Fumarate 1 puff INHALATION BID #10.2 gm 12/05/21 [Symbicort 80-4.5 Mcg Inhaler] levoFLOXacin [Levaquin] 750 mg PO DAILY 5 Days #5 tab 12/05/21 Levofloxacin [Levaquin] 500 mg PO DAILY 5 Days #5 tab 12/17/22 predniSONE 50 mg PO DAILY #5 tab 12/17/22 Allergies Allergy/AdvReac Type Severity Reaction Status Date / Time No Known Allergies Allergy Verified 04/04/23 13:00 Review of Systems ROS Statement: Those systems with pertinent positive or pertinent negative responses have been documented in the HPI. ROS Other: All systems not noted in ROS Statement are negative. Past Medical History Past Medical History: Unable to Obtain, Atrial Fibrillation, Cancer, Memory Impairment, Seizure Disorder Additional Past Medical History / Comment(s): RT TONSIL CANCER/HX "BLOOD CLOT" "ON EACH SIDE OF MY BRAIN" february 2016/STD DECREASED History of Any Multi-Drug Resistant Organisms: Unobtainable Past Surgical History: Unable to Obtain Additional Past Surgical History / Comment(s): colonoscopy/ HX "LYMPH NODES OUT" TO RIGHT NECK SEP 13 2016 Past Anesthesia/Blood Transfusion Reactions: No Reported Reaction Past Psychological History: No Psychological Hx Reported Smoking Status: Former smoker Past Alcohol Use History: Abuse Past Drug Use History: None Reported - Past Family History Father Family Medical History: Cancer Mother Family Medical History: AFIB Brother(s) Family Medical History: Cancer, Coronary Artery Disease (CAD) Sister(s) Family Medical History: Cancer Son(s) Family Medical History: No Reported History Daughter(s) Family Medical History: No Reported History General Exam Limitations: no limitations General appearance: alert Head exam: Present: atraumatic ENT exam: Present: other (Active bleeding of the gums at the bottom of left lateral incisor. No other areas of active bleeding.) Neck exam: Present: normal inspection Respiratory exam: Present: normal lung sounds bilaterally Cardiovascular Exam: Present: regular rate, normal rhythm GI/Abdominal exam: Present: soft Neurological exam: Present: alert, oriented X3 Skin exam: Present: warm, dry Course Vital Signs 04/04/23 04/04/23 04/04/23 12:57 14:51 15:45 Temperature 97.9 F Pulse Rate 61 65 68 Respiratory 20 18 18 Rate Blood Pressure 154/86 129/97 O2 Sat by Pulse 99 90 L 92 L Oximetry 04/04/23 04/04/23 04/04/23 16:03 17:23 18:46 Temperature Pulse Rate 64 68 75 Respiratory 18 18 18 Rate Blood Pressure 137/94 120/95 137/97 O2 Sat by Pulse 90 L 90 L 90 L Oximetry Medical Decision Making - Medical Decision Making Was pt. sent in by a medical professional or institution (, PA, STITCH MARKER, urgent care, hospital, or retirement...) When possible be specific @ -No Did you speak to anyone other than the patient for history (EMS, parent, family, police, friend...)? What history was obtained from this source @ -No Did you review nursing and triage notes (agree or disagree)? Why? @ -I reviewed and agree with nursing and triage notes Were old charts reviewed (outside hosp., previous admission, EMS record, old EKG, old radiological studies, urgent care reports/EKG's, retirement records)? Report findings @ -No old charts were reviewed Differential Diagnosis (chest pain, altered mental status, abdominal pain women, abdominal pain men, vaginal bleeding, weakness, fever, dyspnea, syncope, headache, dizziness, GI bleed, back pain, seizure, CVA, palpatations, mental health, musculoskeletal)? @ -not applicable EKG interpreted by me (3pts min.). @ -As above X-rays interpreted by me (1pt min.). @ -None done CT interpreted by me (1pt min.). @ -None done U/S interpreted by me (1pt. min.). @ -None done What testing was considered but not performed or refused? (CT, X-rays, U/S, labs)? Why? @ -None What meds were considered but not given or refused? Why? @ -None Did you discuss the management of the patient with other professionals (professionals i.e. , PA, STITCH MARKER, lab, RT, psych nurse, social insurance adviser, retort cooler, teacher, geographic area intelligence officer, manager of case management)? Give summary @ -No Was smoking cessation discussed for >3mins.? @ -No Was critical care preformed (if so, how long)? @ -No Were there social determinants of health that impacted care today? How? (Homelessness, low income, unemployed, alcoholism, drug addiction, transportation, low edu. Level, literacy, decrease access to med. care, fpc, rehab)? @ -No Was there de-escalation of care discussed even if they declined (Discuss DNR or withdrawal of care, Hospice)? DNR status @ -No What co-morbidities impacted this encounter? (DM, HTN, Smoking, COPD, CAD, Cancer, CVA, ARF, Chemo, Hep., AIDS, mental health diagnosis, sleep apnea, morbid obesity)? @ -CVA/Eliquis use Was patient admitted / discharged? Hospital course, mention meds given and route, prescriptions, significant lab abnormalities, going to OR and other pertinent info. @ -Discharge. Multiple attempts were made for hemostasis. Initially tried TXA with Gelfoam. This did not provide hemostasis so Eliquis was reversed with K centra. No improvement with both of the above so addition of lidocaine with epi used. This was able to provide adequate hemostasis. Patient discharged home in stable condition. Advised to continue putting pressure to maintain hemostasis. Advised holding Eliquis for the next 3-4 days. Advised follow-up with oral surgeon/PCP. Discussed return precautions with patient and who verbalizes agreement. Undiagnosed new problem with uncertain prognosis? @ -No Drug Therapy requiring intensive monitoring for toxicity (Heparin, Nitro, Insulin, Cardizem)? @ -No Were any procedures done? @ -No Diagnosis/symptom? @ -Bleeding gum s/p dental extraction on 03/14 Acute, or Chronic, or Acute on Chronic? @ -Acute Uncomplicated (without systemic symptoms) or Complicated (systemic symptoms)? @ -Uncomplicated Side effects of treatment? @ -No Exacerbation, Progression, or Severe Exacerbation? @ -No Poses a threat to life or bodily function? How? (Chest pain, [place], [place], pneumonia, PE, COPD, DKA, ARF, appy, cholecystitis, CVA, Diverticulitis, Homicidal, Suicidal, threat to staff... and all critical care pts) @ -No - Lab Data Result diagrams: 04/04/23 13:51 04/04/23 13:51 Lab Results 04/04/23 04/04/23 04/04/23 Range/Units 13:51 13:51 16:02 WBC 9.3 (3.8-10.6) k/uL RBC 5.49 (4.30-5.90) m/uL Hgb 16.7 (13.0-17.5) gm/dL Hct 51.7 (39.0-53.0) % MCV 94.1 (80.0-100.0) fL MCH 30.5 (25.0-35.0) pg MCHC 32.4 (31.0-37.0) g/dL RDW 14.1 (11.5-15.5) % Plt Count 189 (150-450) k/uL MPV 7.4 Neutrophils % 87 % Lymphocytes % 6 % Monocytes % 4 % Eosinophils % 1 % Basophils % 0 % Neutrophils # 8.1 H (1.3-7.7) k/uL Lymphocytes # 0.6 L (1.0-4.8) k/uL Monocytes # 0.3 (0-1.0) k/uL Eosinophils # 0.1 (0-0.7) k/uL Basophils # 0.0 (0-0.2) k/uL PT 10.7 (9.0-12.0) sec INR 1.0 (<1.2) APTT 42.5 H (22.0-30.0) sec Sodium 138 (137-145) mmol/L Potassium 4.8 (3.5-5.1) mmol/L Chloride 100 (98-107) mmol/L Carbon Dioxide 29 (22-30) mmol/L Anion Gap 9 mmol/L BUN 20 (9-20) mg/dL Creatinine 0.95 (0.66-1.25) mg/dL Est GFR (CKD-EPI)AfAm >90 (>60 ml/min/1.73 sqM) Est GFR (CKD-EPI)NonAf 87 (>60 ml/min/1.73 sqM) Glucose 98 (74-99) mg/dL Calcium 9.5 (8.4-10.2) mg/dL Total Bilirubin 0.6 (0.2-1.3) mg/dL AST 44 (17-59) U/L ALT 36 (4-49) U/L Alkaline Phosphatase 129 H (38-126) U/L Total Protein 7.8 (6.3-8.2) g/dL Albumin 4.4 (3.5-5.0) g/dL - EKG Data EKG Comments: EKG shows a sinus rhythm at [address]-T wave changes. KS 158, QRS 94, QT/QTc 419/113. Disposition Clinical Impression: Bleeding gums Disposition: HOME SELF-CARE Condition: Good Additional Instructions: Please return to the Emergency Department if symptoms worsen or any other concerns. Please follow-up with oral surgeon/PCP. Continue holding Eliquis for the next 3-4 days. Is patient prescribed a controlled substance at d/c from ED?: No Referrals: Eugenia Taveras MD [Primary Care Provider] - 1-2 days Time of Disposition: 19:27
[2023-04-04] MEDS ORDERED: TRANEXAMIC ACID 1,000 MG/10 ML VIAL MISCELLANE ONE (13:31)
[2023-04-04 13:57] LABS: Basophils % (A) 0 %; Eosinophils # (A) 0.1 k/uL (0-0.7); Eosinophils % (A) 1 %; HCT 51.7 % (39.0-53.0); HGB 16.7 gm/dL (13.0-17.5); Lymphocytes # (A) 0.6 k/uL (1.0-4.8); Lymphocytes % (A) 6 %; MCH 30.5 pg (25.0-35.0); MCHC 32.4 g/dL (31.0-37.0); MCV 94.1 fL (80.0-100.0); Mean Platelet Volume 7.4; Monocytes # (A) 0.3 k/uL (0-1.0); Monocytes % (A) 4 %; Neutrophils # (A) 8.1 k/uL (1.3-7.7); Neutrophils % (A) 87 %; Platelet Count 189 k/uL (150-450); RBC 5.49 m/uL (4.30-5.90); RDW 14.1 % (11.5-15.5); WBC 9.3 k/uL (3.8-10.6)
[2023-04-04 14:26] LABS: ALT 36 U/L (4-49); AST 44 U/L (17-59); African American GFR (CKD) >90 (>60 ml/min/1.73 sqM); Albumin 4.4 g/dL (3.5-5.0); Alkaline Phosphatase 129 U/L (38-126); Anion Gap 9 mmol/L; Blood Urea Nitrogen 20 mg/dL (9-20); Calcium 9.5 mg/dL (8.4-10.2); Carbon Dioxide 29 mmol/L (22-30); Chloride 100 mmol/L (98-107); Glucose 98 mg/dL (74-99); Non-African American GFR(CKD) 87 (>60 ml/min/1.73 sqM); Potassium 4.8 mmol/L (3.5-5.1); Sodium 138 mmol/L (137-145); Total Bilirubin 0.6 mg/dL (0.2-1.3); Total Protein 7.8 g/dL (6.3-8.2)
[2023-04-04 14:54] VITALS: RESP 18
[2023-04-04] MEDS ORDERED: Kcentra PER PHARMACY 1 EACH MISC MISCELLANE PRN (15:43)
[2023-04-04] MEDS ORDERED: HUMAN PROTHROMBIN COMPLX IV ONE (16:00)
[2023-04-04 16:32] LABS: Partial Thromboplastin Time 42.5 sec (22.0-30.0); Prothrombin Time 10.7 sec (9.0-12.0)
[2023-04-04] MEDS ORDERED: LIDOCAINE 1%-EPI 1:100,000 50 ML VIAL SQ STA (17:04)
[2023-04-04 20:01] VITALS: BP 129/92; PULSE 144
== END 2023-04-04 20:02 | disposition home or self-care (01) ==
LOC: EC 12:48
DX: K06.8 Other specified disorders of gingiva and edentulous alveolar ridge (principal); I48.91 Unspecified atrial fibrillation; G40.909 Epilepsy, unspecified, not intractable, without status epilepticus; Z79.01 Long term (current) use of anticoagulants; Z79.899 Other long term (current) drug therapy; Z87.891 Personal history of nicotine dependence; Z86.73 Personal history of transient ischemic attack (TIA), and cerebral infarction without residual deficits
CPT/HCPCS: 36415; 80053; 85025; 85610; 85730; 93005; 96374; 99283

== ENCOUNTER 2023-04-04 20:08 | Observation (INO) | payer MEDICARE, OTHER ==
[2023-04-04] MEDS ORDERED: DILTIAZEM DRIP BOLUS FROM BAG 1 MG SOLN IV ONE (20:13)
[2023-04-04] MEDS ORDERED: DILTIAZEM 125 MG in SODIUM CHLORIDE 0.9% 100 ML IV SCH (20:15)
[2023-04-04 20:42] LABS: Basophils % (A) 0 %; Eosinophils % (A) 1 %; HCT 49.1 % (39.0-53.0); HGB 16.2 gm/dL (13.0-17.5); Lymphocytes # (A) 0.8 k/uL (1.0-4.8); Lymphocytes % (A) 10 %; MCH 30.7 pg (25.0-35.0); MCV 93.1 fL (80.0-100.0); Mean Platelet Volume 7.2; Monocytes # (A) 0.4 k/uL (0-1.0); Monocytes % (A) 4 %; Neutrophils # (A) 6.9 k/uL (1.3-7.7); Neutrophils % (A) 83 %; Platelet Count 196 k/uL (150-450); RBC 5.27 m/uL (4.30-5.90); RDW 13.8 % (11.5-15.5); WBC 8.3 k/uL (3.8-10.6)
[2023-04-04 20:57] LABS: Magnesium 1.8 mg/dL (1.6-2.3)
[2023-04-04] MEDS ORDERED: NALOXONE 0.4 MG/ML 1 ML VIAL IV PRN (21:42)
--- NOTE | 2023-04-04 21:43 | ED ---
General Adult HPI - General Chief complaint: ENT Stated complaint: AFib Time Seen by Provider: 04/04/23 20:30 Source: patient Mode of arrival: ambulatory Limitations: no limitations - History of Present Illness Initial comments: 62-year-old male past history of A. fib who presents to the emergency department for rapid heart rate. He was seen in the emergency room earlier today for uncontrolled bleeding from his gums. He is on Eliquis and recently had all of his bottom teeth pulled. He was having some bleeding and spent most of the day in the emergency department trying to get it under control. As soon as the bleeding was controlled the patient was discharged home. Upon walking out the patient's had sudden onset of rapid heart rate. Patient was found to be in A. fib which she has not had any issues with for several years. He denies taking his rate controlling medications this morning due to the bleeding. He denies having any symptoms to include chest pain or shortness of breath. No other alleviating, precipitating or modifying factors - Related Data Home Medications Medication Instructions Recorded Confirmed Apixaban [Eliquis] 5 mg PO BID 10/15/16 04/04/23 Atorvastatin [Lipitor] 20 mg PO HS 10/15/16 04/04/23 Metoprolol Succinate [Toprol XL] 25 mg PO DAILY 12/04/21 04/04/23 Spiriva Respimat 1.25 Mcg/Act 2 puff INHALATION RT-DAILY 12/04/21 04/04/23 levETIRAcetam [Keppra] 1,000 mg PO BID 12/04/21 04/04/23 Acetaminophen-Codeine 300-30mg 1 tab PO Q4H PRN 04/04/23 04/04/23 [Tylenol w/codeine #3] Albuterol Inhaler [Ventolin Hfa 2 puff INHALATION RT-QID PRN 04/04/23 04/04/23 Inhaler] Amoxicillin 500 mg PO QID 04/04/23 04/04/23 Ibuprofen [Motrin] 800 mg PO Q8H PRN 04/04/23 04/04/23 Levothyroxine Sodium [Synthroid] 50 mcg PO DAILY 04/04/23 04/04/23 Sertraline [Zoloft] 50 mg PO DAILY 04/04/23 04/04/23 Allergies Allergy/AdvReac Type Severity Reaction Status Date / Time No Known Allergies Allergy Verified 04/04/23 22:34 Review of Systems ROS Statement: Those systems with pertinent positive or pertinent negative responses have been documented in the HPI. ROS Other: All systems not noted in ROS Statement are negative. Past Medical History Past Medical History: Unable to Obtain, Atrial Fibrillation, Cancer, Memory Impairment, Seizure Disorder Additional Past Medical History / Comment(s): RT TONSIL CANCER/HX "BLOOD CLOT" "ON EACH SIDE OF MY BRAIN" february 2016/STD DECREASED History of Any Multi-Drug Resistant Organisms: Unobtainable Past Surgical History: Unable to Obtain Additional Past Surgical History / Comment(s): colonoscopy/ HX "LYMPH NODES OUT" TO RIGHT NECK SEP 13 2016 Past Anesthesia/Blood Transfusion Reactions: No Reported Reaction Past Psychological History: No Psychological Hx Reported Smoking Status: Former smoker Past Alcohol Use History: Abuse Past Drug Use History: None Reported - Past Family History Father Family Medical History: Cancer Mother Family Medical History: AFIB Brother(s) Family Medical History: Cancer, Coronary Artery Disease (CAD) Sister(s) Family Medical History: Cancer Son(s) Family Medical History: No Reported History Daughter(s) Family Medical History: No Reported History General Exam Limitations: no limitations General appearance: alert, in no apparent distress Head exam: Present: atraumatic, normocephalic, normal inspection Eye exam: Present: normal appearance, PERRL, EOMI. Absent: scleral icterus, conjunctival injection, periorbital swelling ENT exam: Present: other (Extraction of multiple lower teeth. Sutures in place. Active oozing. Large clot left lower incisor) Neck exam: Present: normal inspection. Absent: tenderness, meningismus, lymphadenopathy Respiratory exam: Present: normal lung sounds bilaterally. Absent: respiratory distress, wheezes, rales, rhonchi, stridor Cardiovascular Exam: Present: tachycardia, irregular rhythm, normal heart sounds. Absent: systolic murmur, diastolic murmur, rubs, gallop, clicks GI/Abdominal exam: Present: soft, normal bowel sounds. Absent: distended, tenderness, guarding, rebound, rigid Extremities exam: Present: normal inspection, full ROM, normal capillary refill. Absent: tenderness, pedal edema, joint swelling, calf tenderness Back exam: Present: normal inspection Neurological exam: Present: alert, oriented X3, CN II-XII intact Psychiatric exam: Present: normal affect, normal mood Skin exam: Present: warm, dry, intact, normal color. Absent: rash Course Vital Signs 04/04/23 04/04/23 04/05/23 20:26 23:24 01:03 Pulse Rate 142 H 111 H 85 Respiratory 18 18 18 Rate Blood Pressure 129/92 90/59 99/70 O2 Sat by Pulse 92 L 96 96 Oximetry Medical Decision Making - Medical Decision Making Was pt. sent in by a medical professional or institution (, PA, LUG LOADER, urgent care, hospital, or care home...) When possible be specific @ -No Did you speak to anyone other than the patient for history (EMS, parent, family, police, friend...)? What history was obtained from this source @ -I spoke with the patient's Did you review nursing and triage notes (agree or disagree)? Why? @ -I reviewed and agree with nursing and triage notes Were old charts reviewed (outside hosp., previous admission, EMS record, old EKG, old radiological studies, urgent care reports/EKG's, care home records)? Report findings @ -I reviewed the patient's ED visit from today Differential Diagnosis (chest pain, altered mental status, abdominal pain women, abdominal pain men, vaginal bleeding, weakness, fever, dyspnea, syncope, headache, dizziness, GI bleed, back pain, seizure, CVA, palpatations, mental health, musculoskeletal)? @ -Differential Palpitations Ventricular arrhythmias, atrial arrhythmias, myocardial infarction, anemia, thyrotoxicosis, electrolyte imbalance, hypokalemia, pulmonary embolism, pulmonary disease, drugs, alcohol, anxiety, stress.... This is not meant to be an all-inclusive list. EKG interpreted by me (3pts min.). @ -Yes and demonstrates A. fib with a rate of 141. QRS 92. QTC 342. Some ST depression V3 through V6 X-rays interpreted by me (1pt min.). @ -None done CT interpreted by me (1pt min.). @ -None done U/S interpreted by me (1pt. min.). @ -None done What testing was considered but not performed or refused? (CT, X-rays, U/S, labs)? Why? @ -None What meds were considered but not given or refused? Why? @ -None Did you discuss the management of the patient with other professionals (professionals i.e. , PA, LUG LOADER, lab, RT, psych nurse, dialysis social worker, chemical engineering technologist, teacher, contracts officer, case technician)? Give summary @ -Spoke with Jhonatan from [facility] agreed to admit the patient Was smoking cessation discussed for >3mins.? @ -No Was critical care preformed (if so, how long)? @ -yes, 35 minutes for management of Cardizem drip Were there social determinants of health that impacted care today? How? (Homelessness, low income, unemployed, alcoholism, drug addiction, transportation, low edu. Level, literacy, decrease access to med. care, [facility], rehab)? @ -No Was there de-escalation of care discussed even if they declined (Discuss DNR or withdrawal of care, Hospice)? DNR status @ -No What co-morbidities impacted this encounter? (DM, HTN, Smoking, COPD, CAD, Cancer, CVA, ARF, Chemo, Hep., AIDS, mental health diagnosis, sleep apnea, m orbid obesity)? @ -A. fib Was patient admitted / discharged? Hospital course, mention meds given and route, prescriptions, significant lab abnormalities, going to OR and other pertinent info. @ -Patient was placed back into his room. He is hooked to continuous pulse ox and cardiac monitoring. Patient has 12 EKG which demonstrates A. fib with RVR. Laboratory studies had RT been completed but I did repeat a CBC. Mag is ordered which comes back as 1.8. Thyroid studies within normal limits. Patient is given 1 g of mag and started on a Cardizem drip. He will be admitted for cardiology consultation. Spoke with Jhonatan from [facility] who agreed to admit patient. Undiagnosed new problem with uncertain prognosis? @ -No Drug Therapy requiring intensive monitoring for toxicity (Heparin, Nitro, Insulin, Cardizem)? @ -Cardizem Were any procedures done? @ -No Diagnosis/symptom? @ -A. fib with RVR Acute, or Chronic, or Acute on Chronic? @ -Acute on chronic Uncomplicated (without systemic symptoms) or Complicated (systemic symptoms)? @ -Complicated Side effects of treatment? @ -Hypotension Exacerbation, Progression, or Severe Exacerbation? @ -No Poses a threat to life or bodily function? How? (Chest pain, [place], [place], pneumonia, PE, COPD, DKA, ARF, appy, cholecystitis, CVA, Diverticulitis, Homicidal, Suicidal, threat to staff... and all critical care pts) @ -Yes patient has markedly elevated heart rate - Lab Data Result diagrams: 04/04/23 20:25 Lab Results 04/04/23 04/04/23 Range/Units 20:25 20:25 WBC 8.3 (3.8-10.6) k/uL RBC 5.27 (4.30-5.90) m/uL Hgb 16.2 (13.0-17.5) gm/dL Hct 49.1 (39.0-53.0) % MCV 93.1 (80.0-100.0) fL MCH 30.7 (25.0-35.0) pg MCHC 33.0 (31.0-37.0) g/dL RDW 13.8 (11.5-15.5) % Plt Count 196 (150-450) k/uL MPV 7.2 Neutrophils % 83 % Lymphocytes % 10 % Monocytes % 4 % Eosinophils % 1 % Basophils % 0 % Neutrophils # 6.9 (1.3-7.7) k/uL Lymphocytes # 0.8 L (1.0-4.8) k/uL Monocytes # 0.4 (0-1.0) k/uL Eosinophils # 0.0 (0-0.7) k/uL Basophils # 0.0 (0-0.2) k/uL Magnesium 1.8 (1.6-2.3) mg/dL TSH 6.960 H (0.465-4.680) mIU/L Free T4 1.20 (0.78-2.19) ng/dL Disposition Clinical Impression: Atrial fibrillation with RVR, Bleeding gums Disposition: ADMITTED IP TO THIS HOSP Condition: Stable Is patient prescribed a controlled substance at d/c from ED?: No Time of Disposition: 21:42 Decision to Admit Reason: Admit from EC Decision Date: 04/04/23 Decision Time: 21:42
[2023-04-04] MEDS ORDERED: SODIUM CHLORIDE 0.9% 1,000 ML IV ONE (22:11)
[2023-04-04] MEDS ORDERED: MAGNESIUM SULFATE-D5W PMX 1 GM in DEXTROSE/WATER 1 100ML.BAG IVPB ONE (23:27)
[2023-04-05] MEDS ORDERED: Acetaminophen-Codeine 300-30mg TAB PO PRN (02:10)
[2023-04-05] MEDS ORDERED: ALBUTEROL NEBULIZED 2.5 MG/3 ML INHALATION PRN (02:10)
[2023-04-05] MEDS: AMOXICILLIN 500 MG CAP PO SCH ×2 (02:32→09:08)
[2023-04-05] MEDS ORDERED: LEVOTHYROXINE 50 MCG TAB PO SCH (06:30)
[2023-04-05 07:43] LABS: Basophils % (A) 0 %; Eosinophils # (A) 0.1 k/uL (0-0.7); Eosinophils % (A) 1 %; HCT 48.5 % (39.0-53.0); HGB 15.8 gm/dL (13.0-17.5); Lymphocytes % (A) 15 %; MCH 31.3 pg (25.0-35.0); MCHC 32.5 g/dL (31.0-37.0); MCV 96.2 fL (80.0-100.0); Mean Platelet Volume 7.9; Monocytes # (A) 0.5 k/uL (0-1.0); Monocytes % (A) 8 %; Neutrophils # (A) 4.8 k/uL (1.3-7.7); Neutrophils % (A) 73 %; Platelet Count 210 k/uL (150-450); RBC 5.04 m/uL (4.30-5.90); RDW 14.2 % (11.5-15.5); WBC 6.6 k/uL (3.8-10.6)
[2023-04-05] MEDS ORDERED: IPRATROPIUM 0.5 MG/2.5 ML NEBU INHALATION SCH (08:00)
[2023-04-05 08:05] LABS: African American GFR (CKD) >90 (>60 ml/min/1.73 sqM); Anion Gap 8 mmol/L; Blood Urea Nitrogen 19 mg/dL (9-20); Calcium 8.8 mg/dL (8.4-10.2); Carbon Dioxide 28 mmol/L (22-30); Chloride 100 mmol/L (98-107); Glucose 73 mg/dL (74-99); Non-African American GFR(CKD) >90 (>60 ml/min/1.73 sqM); Potassium 4.5 mmol/L (3.5-5.1); Sodium 136 mmol/L (137-145)
[2023-04-05] MEDS ORDERED: SERTRALINE 50 MG TAB PO SCH (09:00)
[2023-04-05] MEDS ORDERED: METOPROLOL SUCCINATE (ER) 25 MG TAB.ER.24H PO SCH (09:00)
[2023-04-05] MEDS ORDERED: levETIRAcetam 500 MG TAB PO SCH (09:00)
[2023-04-05 09:08] VITALS: BP 94/74; PULSE 64; RESP 17; TEMP 97.6
--- NOTE | 2023-04-05 10:34 | P.HPIM ---
History of Present Illness please consider this note as combined H&P and discharge summary i came to see the pt , he was not in his room , i checked the chart and looks like he left AMA before i have a chance to see him or talk to him Past Medical History Past Medical History: Unable to Obtain, Atrial Fibrillation, Cancer, Memory Impairment, Seizure Disorder Additional Past Medical History / Comment(s): RT TONSIL CANCER/HX "BLOOD CLOT" "ON EACH SIDE OF MY BRAIN" february 2016/STD DECREASED History of Any Multi-Drug Resistant Organisms: Unobtainable Past Surgical History: Unable to Obtain Additional Past Surgical History / Comment(s): colonoscopy/ HX "LYMPH NODES OUT" TO RIGHT NECK SEP 13 2016 Past Anesthesia/Blood Transfusion Reactions: No Reported Reaction Past Psychological History: No Psychological Hx Reported Smoking Status: Former smoker Past Alcohol Use History: Abuse Past Drug Use History: None Reported - Past Family History Father Family Medical History: Cancer Mother Family Medical History: AFIB Brother(s) Family Medical History: Cancer, Coronary Artery Disease (CAD) Sister(s) Family Medical History: Cancer Son(s) Family Medical History: No Reported History Daughter(s) Family Medical History: No Reported History Medications and Allergies Home Medications Medication Instructions Recorded Confirmed Type Apixaban [Eliquis] 5 mg PO BID 10/15/16 04/04/23 History Atorvastatin [Lipitor] 20 mg PO HS 10/15/16 04/04/23 History Metoprolol Succinate [Toprol XL] 25 mg PO DAILY 12/04/21 04/04/23 History Spiriva Respimat 1.25 Mcg/Act 2 puff INHALATION RT-DAILY 12/04/21 04/04/23 History levETIRAcetam [Keppra] 1,000 mg PO BID 12/04/21 04/04/23 History Acetaminophen-Codeine 300-30mg 1 tab PO Q4H PRN 04/04/23 04/04/23 History [Tylenol w/codeine #3] Albuterol Inhaler [Ventolin Hfa 2 puff INHALATION RT-QID PRN 04/04/23 04/04/23 History Inhaler] Amoxicillin 500 mg PO QID 04/04/23 04/04/23 History Ibuprofen [Motrin] 800 mg PO Q8H PRN 04/04/23 04/04/23 History Levothyroxine Sodium [Synthroid] 50 mcg PO DAILY 04/04/23 04/04/23 History Sertraline [Zoloft] 50 mg PO DAILY 04/04/23 04/04/23 History Allergies Allergy/AdvReac Type Severity Reaction Status Date / Time No Known Allergies Allergy Verified 04/04/23 22:34 Physical Exam Vitals: Vital Signs Temp Pulse Pulse Resp BP BP Pulse Ox 04/05/23 07:48 97.6 F 64 17 94/74 92 L 04/05/23 05:17 69 79/67 97 04/05/23 01:03 85 18 99/70 96 04/04/23 23:24 111 H 18 90/59 96 04/04/23 20:26 142 H 18 129/92 92 L Intake and Output 04/04/23 04/05/23 04/05/23 22:59 06:59 14:59 Intake Total 8.583 64.375 Balance 8.583 64.375 Intake: Intake, IV Titration 8.583 64.375 Amount Diltiazem 125 mg In 8.583 64.375 Sodium Chloride 0.9% 100 ml @ 5 MG/HR 5 mls/hr IV .Q24H [facility] Rx#:[id number] Other: Weight 62.142 kg Results CBC & Chem 7: 04/05/23 06:05 04/05/23 06:05 Labs: Abnormal Lab Results - Last 24 Hours (Table) 04/04/23 04/04/23 04/05/23 Range/Units 20:25 20:25 06:05 Lymphocytes # 0.8 L (1.0-4.8) k/uL Sodium 136 L (137-145) mmol/L Glucose 73 L (74-99) mg/dL TSH 6.960 H (0.465-4.680) mIU/L
[2023-04-05] MEDS ORDERED: ATORVASTATIN 20 MG TAB PO SCH (21:00)
== END 2023-04-05 09:14 | disposition left against medical advice (07) ==
LOC: EC 20:08 → 3SCARD 21:44
PROVIDERS: ADMIT Hospitalist; ATTEND Hospitalist
DX: I48.91 Unspecified atrial fibrillation (principal); G40.909 Epilepsy, unspecified, not intractable, without status epilepticus; Z79.01 Long term (current) use of anticoagulants; Z79.899 Other long term (current) drug therapy; Z79.890 Hormone replacement therapy; Z85.818 Personal history of malignant neoplasm of other sites of lip, oral cavity, and pharynx; Z87.891 Personal history of nicotine dependence; Z82.49 Family history of ischemic heart disease and other diseases of the circulatory system; Z53.21 Procedure and treatment not carried out due to patient leaving prior to being seen by health care provider
CPT/HCPCS: 96376; 96365; 96366 ×2; 96367; 99291; 36415; 84439; 80048; 84443; 83735; 85025 ×2; G0378 ×2; J3475

== ENCOUNTER → 2024-10-29 | Outpatient (CLI) | payer MEDICARE ==
--- NOTE | 2024-10-29 08:16 | US ---
EXAMINATION TYPE: US Aorta Screening DATE OF EXAM: 10/29/2024 COMPARISON: NONE CLINICAL INDICATION: Male, 63 years old with history of Z13.6 SCREENING FOR CARDIOVASCULAR DISORDER; TECHNIQUE: Multiple sonographic images of the abdominal aorta are obtained with grayscale and color D oppler imaging. FINDINGS: EXAM MEASUREMENTS: Abdominal Aorta: Proximal: 1.7x2.0cm Mid: 1.8x1.8cm Distal: 1.5x1.9cm Bifurcation: Right Iliac: 0.9x1.1cm Left Iliac: 0.9x0.9cm HAND PLEATER NOTES: slightly limited exam due to overlying bowel IMPRESSION: No evidence for aortic aneurysm. No further workup recommended for negative screening aortic aneurysm ultrasound. [facility], , 10/29/2024 8:14 AM
== END | disposition home or self-care (01) ==
LOC: RADUSWWP 07:37
PROVIDERS: ATTEND Family Medicine
DX: Z13.6 Encounter for screening for cardiovascular disorders (principal)
CPT/HCPCS: 76706

== ENCOUNTER → 2024-11-03 | Outpatient (CLI) | payer MEDICARE ==
--- NOTE | 2024-11-03 14:51 | US ---
EXAMINATION TYPE: US kidneys/renal and bladder DATE OF EXAM: 11/03/2024 COMPARISON: NONE CLINICAL INDICATION: Male, 63 years old with history of N18.31 CKD 3A; CKD TECHNIQUE: Grayscale imaging of the bilateral kidneys and urinary bladder: FINDINGS: EXAM MEASUREMENTS: Right Kidney: 8.9 x 4.4 x 5.5 cm Left Kidney: 9.4 x 4.7 x 4.0 cm Right Kidney: wnl Left Kidney: wnl Bladder: wnl Bilateral Jets seen: Yes There is no evidence for hydronephrosis at this point in time. No nephrolithiasis is seen. No madhu s are identified. The urinary bladder is anechoic. Exam limited by rib spaces and bowel gas. Increased cortical echogenicity bilaterally. IMPRESSION: Evidence of chronic medical renal disease. No hydronephrosis seen bilaterally. [facility], , 11/03/2024 2:49 PM
--- NOTE | 2024-11-03 15:46 | CTL ---
EXAMINATION TYPE: CT Low Dose Lung DATE OF EXAM ORDERED: 11/03/2024 COMPARISON: 05/21/2022 CLINICAL INDICATION: Male, 63 years old with history of M48.061 SPINAL STENOSIS, LUMBAR REGION WITHOU T [place]; PHH, personal tobacco use, Lung cancer screening, History of Smoking/tobacco use. TECHNIQUE: Low dose computed tomography scan was performed through the chest at 1 mm thick sections a nd reconstructed images in multiple planes at 1 mm and [address] DLP: 65.[address] CTDI: 1.7 mGy Automated exposure control for dose reduction was used. CT DIAGNOSTIC QUALITY: Satisfactory FINDINGS: EXAMINATION TYPE: CT Low Dose Lung DATE OF EXAM ORDERED: 11/03/2024 CLINICAL INDICATION: Male, 63 years old with history of M48.061 SPINAL STENOSIS, LUMBAR REGION WITHOU T [place], history of tobacco use, Lung cancer screening CT DLP: 65.[address] CTDI: 1.7 mGy Automated exposure control for dose reduction was used. Comparison: None TECHNIQUE: Low dose computed tomography scan was performed through the chest at 1 mm thick sections a nd reconstructed images in multiple planes at 1 mm and [address] DIAGNOSTIC QUALITY: Satisfactory FINDINGS: There are moderate emphysematous changes. There are scattered areas of mild interstitial scarring or fibrosis particularly in the right middle lobe and right lower lobe. There are scattered sub-5 mm nod ules including in the right upper lobe, right middle lobe and left upper lobe. Right middle lobe and left upper lobe nodules are new compared to the prior study. There are stable juxtapleural nodules in volving the left lung fissure as well. There is no airspace consolidation. There is no mediastinal, hilar or axillary adenopathy. There is no pleural effusion, pleural thickening or pneumothorax. No focal osseous lesions are seen. Limited scans the upper abdomen reveals no gross abnormality IMPRESSION: 1. Lung rads Category 3, likely benign. 2 new sub-5 mm nodules in the right middle lobe and left uppe r lobe. Six-month follow-up CT thorax is recommended to confirm stability.. 2. No acute cardiopulmonary disease. 3. Moderate emphysematous changes and scattered mild chronic interstitial changes. [facility], , 11/03/2024 3:44 PM
== END | disposition home or self-care (01) ==
LOC: RADUSWWP 13:43
PROVIDERS: ATTEND Family Medicine
DX: Z12.2 Encounter for screening for malignant neoplasm of respiratory organs (principal); N18.31 Chronic kidney disease, stage 3a; R91.8 Other nonspecific abnormal finding of lung field; J43.9 Emphysema, unspecified; Z87.891 Personal history of nicotine dependence
CPT/HCPCS: 71271; 76770